=== PATIENT | female | born 1960 | race Caucasian/White ===

== ENCOUNTER 2017-09-14 07:36 | Day surgery (SDC) | payer OTHER | END 2017-09-14 08:05 | disposition home or self-care (01) | LOC: SDS 07:36 | DX: J32.8 Other chronic sinusitis (principal); Z53.9 Procedure and treatment not carried out, unspecified reason; J34.2 Deviated nasal septum ==

== ENCOUNTER 2017-11-02 07:53 | Day surgery (SDC) | payer OTHER ==
[~2017-11-02 07:53] MED LIST: EPHEDrine SULFATE 50 MG/5 ML SYG; LIDOCAINE 2% (SDV) 5 ML INJ
[2017-11-02] MEDS ORDERED: MIDAZOLAM 1 MG/ML 2 ML INJ (11:38)
[2017-11-02] MEDS ORDERED: PROPOFOL 20 ML (11:38)
[2017-11-02] MEDS ORDERED: ROCURONIUM 50 MG INJ (11:38)
[2017-11-02] MEDS ORDERED: FENTAnyl 50 MCG/ML VIAL (11:38)
[2017-11-02] MEDS ORDERED: ONDANSETRON 4 MG INJ (11:54)
[2017-11-02] MEDS ORDERED: DEXAMETHASONE 4 MG/ML 1 ML INJ (11:54)
[2017-11-02] MEDS ORDERED: MEPERIDINE 25 MG INJ IV (12:00)
[2017-11-02] MEDS ORDERED: hydrALAzine 20 MG INJ IV (12:00)
[2017-11-02] MEDS ORDERED: PHENYLephrine (100 MCG/ML) 5ML SYG (12:00)
[2017-11-02] MEDS ORDERED: HYDROmorphONE (0.2 MG/ML) 10ML SYG IV (12:00)
[2017-11-02] MEDS ORDERED: LABETALOL HCL 20MG INJ IV (12:00)
[2017-11-02] MEDS ORDERED: DIPHENHYDRAMINE 50 MG INJ IV (12:00)
[2017-11-02] MEDS ORDERED: SUGAMMADEX SODIUM 200 MG/2 ML VIAL IV (12:44)
[2017-11-02] MEDS: NEOMYC/POLYMYX/BACIT 30 GM OINT (13:03)
[2017-11-02] MEDS: COCAINE 4% 4 ML TOP (13:03)
[2017-11-02] MEDS: LIDOCAINE 1%/EPI 30 ML INJ (13:03)
[2017-11-02] MEDS: HYDROmorphONE (0.2 MG/ML) 10ML SYG IV (13:19)
[2017-11-02] MEDS: HYDROCODONE/APAP (7.5/325) TAB PO (14:12)
== END 2017-11-02 15:06 | disposition home or self-care (01) ==
LOC: SDS 07:53
DX: J32.8 Other chronic sinusitis (principal); J34.2 Deviated nasal septum; J34.3 Hypertrophy of nasal turbinates; I10 Essential (primary) hypertension
CPT/HCPCS: 30140; 88304; 93005